=== PATIENT | female | born 1985 | race Caucasian/White ===

== ENCOUNTER 2022-05-02 13:49 | Emergency (ER) | payer BC, SELFPAY ==
[2022-05-02 14:06] VITALS: BP 110/68; PULSE 74; RESP 16; TEMP 36.4; O2SAT 99
--- NOTE | 2022-05-02 14:22 | ED.FEMALEGU ---
HPI - Female Genitourinary General Stated complaint: uti Time Seen by Provider: 05/02/22 14:15 Source: patient and RN notes reviewed Mode of arrival: ambulatory Limitations: no limitations History of Present Illness HPI Narrative: 36-year-old female presented for complaint of burning with urination at the end of urine stream. Also endorses frequency and urgency since yesterday. She endorses a history of interstitial cystitis. She denies abdominal pain, nausea, vomiting, flank pain, vaginal discharge, fevers or chills. Denies concern for STD. She took Advil for symptoms. Related Data Allergies Allergy/AdvReac Type Severity Reaction Status Date / Time No Known Allergies Allergy Mild Verified 04/07/14 00:09 Review of Systems Review of Systems: CONSTITUTIONAL: Denies body aches, fever, chills, or sweats. CARDIOVASCULAR: Denies chest pain, palpitations, or edema. RESPIRATORY: Denies cough or dyspnea. GASTROINTESTINAL: Denies abdominal pain, nausea, vomiting, or diarrhea. GENITOURINARY: Reports dysuria, frequency, urgency, denies hematuria, flank pain SKIN: Denies rash, itching, or wounds. MUSCULOSKELETAL: Denies back pain or myalgia. [facility] Family History Family History Grandparent Family history of emphysema Social History Social History Smoking status: Never smoker Alcohol intake: current Comments At time of signature, I have reviewed and agree with nursing past medical, surgical, social and family history unless otherwise noted. Please see nursing chart for further information. There is no relevant family history pertinent to the presenting complaint Exam Narrative: GENERAL: Well-appearing ENT: Mucous membranes pink and moist. NECK: Normal AROM. Supple. CHEST: Clear to auscultation. HRR ABDOMEN: Soft, nontender, nondistended, normal active bowel sounds. No CVA tenderness SKIN: Warm, dry, no rash. Course Course Emergency Course: Patient is aware of diagnosis, understands and agrees to treatment plan. Anticipatory guidance given. Patient agrees to follow-up as directed and is aware of reasons to seek care at the emergency department. Portions of this record may have been created with voice recognition software Level of Care: Express Care Visit Vital Signs Vital signs: Vital Signs Temperature 97.5 F L 05/02/22 14:06 Pulse Rate 74 05/02/22 14:06 Respiratory Rate 16 05/02/22 14:06 Blood Pressure 110/68 05/02/22 14:06 Pulse Oximetry 99 05/02/22 14:06 Oxygen Delivery Room Air 05/02/22 14:06 Temperature 97.5 F L 05/02/22 14:06 Pulse Rate 74 05/02/22 14:06 Respiratory Rate 16 05/02/22 14:06 Blood Pressure 110/68 05/02/22 14:06 Pulse Oximetry 99 05/02/22 14:06 Oxygen Delivery Room Air 05/02/22 14:06 Reviewed MDM - Female Genitourinary MDM Narrative Medical decision making narrative: Advised supportive measures reviewed abx and signs/symptoms to go to the ER. Pt is appropriate for outpt treatment and f/u. Differential Diagnosis Differential diagnosis: Likely urinary tract infection and cystitis Lab Data Labs: Urine Glucose Negative Reference Range: Negative Urine Bilirubin Negative Reference Range: Negative Urine Ketone Negative Reference Range: Negative Urine Specific [place] 1.005 Reference Range:1.001-1.035 Urine Blood 3+ Reference Range: Negative * * Urine pH 6.5 Reference Range: 5.
== END 2022-05-02 14:28 | disposition home or self-care (01) ==
PROVIDERS: Emergency Provider Nurse Practitioner Family
DX: N39.0 Urinary tract infection, site not specified (principal)
CPT/HCPCS: 81003; 87077; 87086; 87088; 99213; G0463